=== PATIENT | female | born 1965 | race American Indian/Alaskan Native ===

== ENCOUNTER 2020-11-02 13:04 | Outpatient (CLI) | payer OTHER ==
--- NOTE | 2020-11-02 14:05 | Mammography Report ---
DIGITAL DIAGNOSTIC MAMMOGRAM WITH CAD CONVENTIONAL, 11/02/2020 CLINICAL INFORMATION / INDICATION: Patient has history of left breast cancer status post lumpectomy in 2013. TECHNIQUE: Digital left mammographic imaging was performed. This examination was interpreted with the benefit of Computer-aided Detection analysis. COMPARISON: Prior mammograms 12/11/2019 and 08/17/2017 FINDINGS: Breast Density: There are scattered areas of fibroglandular density. No dominant mass, suspicious calcifications or architectural distortion in the left breast. There is stable benign postsurgical change in the left breast. There has been no significant change c ompared with the prior examinations. IMPRESSION: 1. No mammographic evidence of malignancy in the left breast. Follow up recommendation: Back to schedule. BI-RADS Category 2: Benign. A "normal" or negative report should not discourage follow up or biopsy of a clinically significant f inding. A written summary of these findings will be mailed to the patient. The patient will be entered into a mammography reporting system which will generate a reminder letter for the patient's next appointmen t at the appropriate interval. According to the [employer], yearly mammograms are recommended starting at age 40 and continuing as long as a woman is in good health. Breast MRI is recommended for women with an chioma roximately 20-25% or greater lifetime risk of breast cancer, including women with a strong family his tory of breast or ovarian cancer and women who have been treated for Hodgkin's disease. Signer Name: Mya Regan MD Signed: 11/02/2020 2:00 PM Workstation Name: [id number]
== END 2020-11-02 13:05 | disposition home or self-care (01) ==
LOC: SPVWC 13:04
PROVIDERS: ATTEND Surgery
DX: R92.8 Other abnormal and inconclusive findings on diagnostic imaging of breast (principal); Z85.3 Personal history of malignant neoplasm of breast

== ENCOUNTER 2020-11-18 08:56 | Day surgery (SDC) | payer OTHER ==
[~2020-11-18 08:56] MED LIST: ceFAZolin/STERILE WATER 2 GM/20 ML SYRINGE IV NR
[2020-11-18] MEDS ORDERED: PANTOPRAZOLE 40 MG TAB PO NR ×2 (10:38→10:44)
--- NOTE | 2020-11-18 10:45 | Anesthesia Day of Surgery ---
Anesthesia Day of Surgery - Day of Surgery Patient Examined: Yes Patient H&P Reviewed: Yes Patient is NPO: Yes Beta Blockers: Yes
--- NOTE | 2020-11-18 10:46 | Anesthesia Consultation ---
Anesthesia Consult and Med Hx Date of service: 11/18/20 - Airway Anesthetic Teeth Evaluation: Chipped ROM Head & Neck: Adequate Mental/Hyoid Distance: Adequate Mallampati Class: Class II Intubation Access Assessment: Good - Pre-Operative Health Status ASA Pre-Surgery Classification: ASA2 Proposed Anesthetic Plan: General - Pulmonary Hx Smoking: Yes (STOPPED 2012) Hx Respiratory Symptoms: No (+2FS) Hx Sleep Apnea: No (EDIL PRE SCREEN HIGH RISK) - Cardiovascular System Hx Hypertension: Yes (1.5 YRS) - Central Nervous System Hx Psychiatric Problems: Yes (Anxiety/Depression) - Gastrointestinal Hx Gastroesophageal Reflux Disease: Yes - Hematic Hx Anemia: Yes (WITH LOW IRON LEVELS) Hx Sickle Cell Disease: No - Other Systems Hx Cancer: Yes Hx Obesity: Yes - Additional Comments Anesthesia Medical History Comments: PONV
[2020-11-18] MEDS ORDERED: LACTATED RINGERS 1,000 ML IV SCH (11:00)
[2020-11-18] MEDS ORDERED: MIDAZOLAM 2 MG/2 ML INJ IV NR (11:00)
[2020-11-18] MEDS ORDERED: CISATRACURIUM 10 MG/5 ML INJ IV ONE (12:30)
[2020-11-18] MEDS ORDERED: propofoL 200 MG/20 ML VIAL IV ONE (12:34)
[2020-11-18] MEDS ORDERED: fentaNYL 100 MCG/2 ML INJ ONE ×2 (12:34→13:53)
[2020-11-18] MEDS ORDERED: ePHEDrine SULFATE 50 MG/1 ML INJ ONE (12:37)
[2020-11-18] MEDS ORDERED: ONDANSETRON 4 MG/2 ML INJ ONE (12:47)
[2020-11-18] MEDS ORDERED: dexAMETHasone 20 MG/5 ML VIAL ONE (12:47)
[2020-11-18] MEDS ORDERED: PHENYLEPHRINE/NS 1,000 MCG/10 ML SYRINGE (OR USE) IV ONE (12:47)
[2020-11-18] MEDS ORDERED: NEOSTIGMINE 10MG/10 ML INJ MDV ONE (12:47)
[2020-11-18] MEDS ORDERED: LIDOCAINE MPF (2%) 20 MG/1 ML VIAL 5 ML ONE (12:47)
[2020-11-18] MEDS ORDERED: GLYCOPYRROLATE 0.4 MG/2 ML INJ ONE (12:47)
[2020-11-18] MEDS ORDERED: SCOPOLAMINE TRANSDERMAL PATCH 72 HR TD ONE (12:50)
--- NOTE | 2020-11-18 13:00 | Ultrasound Report ---
Ultrasound-guided right axillary needle localization HISTORY: ABNORMAL LYMPH NODE. Here for needle localization TECHNIQUE: Grayscale and color imaging performed. COMPARISON: Outside right axillary ultrasound from 09/14/2020 PROCEDURE: The risks (including but not limited to bleeding and infection) and benefits were explain ed to the patient and informed consent was obtained. A time out procedure was performed. The proced ure site was prepped and draped in the usual sterile fashion and lidocaine was used for local anesthe donnie. Under ultrasound guidance and utilizing a right lateral approach, a 5 cm localization needle/wire was advanced into the right axillary lymph node with wire then deployed and left in place. Wire was then secured to the patient's skin surface and there was no appreciable bleeding. The patient tolerated the procedure well with no complications. IMPRESSION: Successful ultrasound-guided wire localization of the right axillary lymph node. Signer Name: Mitchell Swift MD Signed: 11/18/2020 12:55 PM Workstation Name: [id number]
[2020-11-18] MEDS ORDERED: BUPIVACAINE/PF (0.5%) 5 MG/1 ML 30 ML VIAL INFILTRATI ONE (13:12)
[2020-11-18] MEDS ORDERED: LIDOCAINE (1%) 10 MG/1 ML VIAL 20 ML MDV ONE (13:12)
[2020-11-18] MEDS ORDERED: BACITRACIN ZINC OINT 28.4 GM TP ONE (13:12)
[2020-11-18] MEDS ORDERED: TRIAMCINOLONE 40 MG/1 ML INJ ONE (13:14)
[2020-11-18] MEDS ORDERED: WATER FOR IRRIG STERILE 1,500 ML BOTTLE IR ONE (13:55)
[2020-11-18] MEDS ORDERED: BUPIVACAINE/PF (0.25%) 2.5 MG/ML 30 ML VIAL INFILTRATI ONE (13:55)
[2020-11-18] MEDS ORDERED: LIDOCAINE (1%) 10 MG/1 ML VIAL 20 ML MDV INFILTRATI ONE (13:55)
[2020-11-18] MEDS ORDERED: TRIAMCINOLONE 40 MG/1 ML INJ IM ONE (13:56)
--- NOTE | 2020-11-18 14:36 | Short Stay Summary ---
Short Stay Documentation Date of service: 11/18/20 - History H&P: obtained from office - Allergies and Medications Current Medications: Allergies erythromycin base [From E-Mycin] Allergy (Verified 11/13/20 16:54) Vomiting Sulfa (Sulfonamide Antibiotics) Allergy (Verified 11/13/20 16:54) Hives Home Medications Medication Instructions Recorded Confirmed Last Taken Type Metoprolol [Lopressor TAB] 75 mg PO DAILY 11/13/20 11/18/20 11/18/20 07:00 History Pantoprazole [Protonix] 40 mg PO QDAY 11/13/20 11/13/20 Unknown History Spironolactone [Aldactone] 25 mg PO QDAY 11/13/20 11/18/20 11/18/20 07:00 History Venlafaxine [Effexor] 75 mg PO DAILY 11/13/20 11/18/20 11/18/20 07:00 History amLODIPine [Norvasc] 2.5 mg PO DAILY 11/13/20 11/18/20 11/18/20 07:00 History oxyCODONE /ACETAMINOPHEN [Percocet 1 tab PO Q6HR PRN #15 tablet 11/18/20 Unknown Rx 5/325] Active Medications Cefazolin Sodium (Cefazolin/Sterile Water 2 Gm/20 Ml Syringe) 2 gm IV PREOP NR Stop: 11/18/20 23:59 Lactated Ringer's (Lactated Ringers) 1,000 mls @ 125 mls/hr IV DIRECT KIESHA Last Admin: 11/18/20 12:30 Dose: 125 mls/hr Documented by: Midazolam HCl (Midazolam 2 Mg/2 Ml Inj) 2 mg IV PREOP NR Stop: 11/18/20 23:59 Last Admin: 11/18/20 12:35 Dose: 2 mg Documented by: - Brief post op/procedure progress note Date of procedure: 11/18/20 Pre-op diagnosis: Abnormal right axillary lymph node Post-op diagnosis: same Procedure: Right needle localization axillary lymph node excisional biopsy Anesthesia: GETA Findings: Right biopsied clip in axillary lymph node Surgeon: CARMEN WYNNE Estimated blood loss: minimal Pathology: list (right axillary lymph node) Specimen disposition: to lab Condition: stable - Disposition Condition at discharge: Good Disposition: DC- TO HOME OR SELFCARE Short Stay Discharge Plan Activity: other (no heavy lifting) Diet: regular Wound: keep clean and dry (may shower in 48 hours; no baths) Follow up with: CARMEN WYNNE MD [Staff Physician] - 7 Days Prescriptions: oxyCODONE /ACETAMINOPHEN [Percocet 5/325] 1 tab PO Q6HR PRN #15 tablet PRN Reason: Pain
--- NOTE | 2020-11-18 14:43 | Operative Report ---
Operative Report Operative Report: Operative Report: November 18, 2020 Preoperative diagnosis: Abnormal axillary lymph node Postoperative diagnosis: Same Procedure: Right needle localization axillary lymph node excisional biopsy Surgeon: Francesca Gonzalez MD Floor Layer Helper: Jaswindre Orlando MD Anesthesia: General Findings: Right wire and clip present within biopsied axillary lymph node Complications: None EBL: Minimal (less than 25 cc) Disposition: PACU in good condition Indications for operative procedure: This is a 55 year old lady with a personal history of left breast cancer and recent abnormal right axillary ultrasound findings of a suspicious axillary lymph node. Ultrasound guided biopsy recently performed with concerns for lymphoma and excisional biopsy recommended to rule out malignancy. She wished to proceed with the above procedure. Procedure in detail: The patient was taken to radiology for wire placement for localization known area of concern of suspicious right axillary lymph node. Patient was then taken to the operating room. Gen. anesthesia was administered. Right breast and axilla were prepped and draped in the normal sterile operative fashion. The wire was identified within the axilla. Timeout was performed. Ultrasound used as well to localize area of excision of axillary lymph node. An axillary incision was made with a 15 blade knife and dissection taken down to subcutaneous tissues. The axillary fascia was opened. The wire was followed that was located within the axillary lymph node. The axillary lymph node was dissected free with the aid of the Bovie Cautery. Axillary lymph node was sent fresh to pathology. An adjcent axillary lymph node was present that was dissecte d free and sent fresh to pathology as well. The axillary cavity was irrigated and hemostasis was obtained. The axillary fascia was approximated and closed using interrupted 3-0 Vicryl. The subcutaneous tissues were approximated and closed using interrupted 3-0 Vicryl followed by closing of the skin with a running 4-0 Monocryl and skin affix. Kenalog was injected as well given history of hypertrophic scar. The patient tolerated surgery very well and she was awaken from anesthesia without any complication and transported to PACU in good condition.
[2020-11-18] MEDS ORDERED: oxyCODONE 5 MG TAB PO PRN (15:20)
[2020-11-18] MEDS ORDERED: oxyCODONE /ACETAMINOPHEN 5-325MG TAB PO PRN (15:22)
[2020-11-18 16:35] VITALS: BP 129/61
--- NOTE | 2020-11-18 17:11 | Post Anesthesia Evaluation ---
- Post Anesthesia Evaluation Patient Participated: Yes Airway Patent: Yes Stable Respiratory Function: Yes Nausea/Vomiting: No Temp > 96.8F: Yes Pain Manageable: Yes Adequeate Hydration: Yes Anesthesia Complications: No Block Receding Appropriately: Not Applicable Patient on Ventilator: No
== END 2020-11-18 08:57 | disposition home or self-care (01) ==
LOC: OR 08:56
PROVIDERS: ATTEND Surgery
DX: I89.8 Other specified noninfective disorders of lymphatic vessels and lymph nodes (principal); G43.909 Migraine, unspecified, not intractable, without status migrainosus; I10 Essential (primary) hypertension; K21.9 Gastro-esophageal reflux disease without esophagitis; F32.9 Major depressive disorder, single episode, unspecified; F41.9 Anxiety disorder, unspecified; E66.9 Obesity, unspecified; Z68.36 Body mass index [BMI] 36.0-36.9, adult; Z85.3 Personal history of malignant neoplasm of breast; Z98.891 History of uterine scar from previous surgery; Z87.891 Personal history of nicotine dependence; Z88.8 Allergy status to other drugs, medicaments and biological substances; Z88.2 Allergy status to sulfonamides; Z86.19 Personal history of other infectious and parasitic diseases; Z98.890 Other specified postprocedural states
CPT/HCPCS: 19285; 38525; 88307; J0690; J1100; J2250; J2370; J2405; J2704; J2710; J3010; J3301; J7120; U0003